=== PATIENT | male | born 1975 | race Caucasian/White ===

== ENCOUNTER 2022-04-28 15:24 | Emergency (ER) | payer MEDICAID, OTHER ==
[~2022-04-28] VITALS: Ht 180.3 cm; Wt 80.0 kg
[2022-04-28] MEDS ORDERED: TETRACAINE 0.5% OPHTH DROPS 4ML LEFTEYE ONE (16:30)
[2022-04-28] MEDS ORDERED: FLUORESCEIN SODIUM 1MG/STRIP LEFTEYE ONE (16:30)
[2022-04-28] MEDS ORDERED: ACETAMINOPHEN 325MG TABLET PO ONE (16:30)
[2022-04-28] MEDS ORDERED: ONDANSETRON HCL 4MG/2ML INJ IV STA ×2 (17:36→23:20)
[2022-04-28] MEDS ORDERED: MORPHINE SULFATE 4 MG/ML CPJ (NOT FOR IM USE) IV STA ×2 (17:36→23:20)
[2022-04-28] MEDS ORDERED: TETANUS, DIPHTHERIA, PERTUSSIS VAC/PF 0.5ML (>10YR OLD) IM ONE (17:45)
[2022-04-28] MEDS ORDERED: CEFAZOLIN 1000MG PREMIX 50 ML IV ONE ×2 (17:45→22:00)
[2022-04-28] MEDS ORDERED: SODIUM CHLORIDE 0.9% 1,000 ML IV ONE (19:15)
[2022-04-29 10:11] VITALS: BP 138/86
== END 2022-04-29 11:11 | disposition short-term general hospital (02) ==
LOC: ER 15:24
DX: S02.842A Fracture of lateral orbital wall, left side, initial encounter for closed fracture (principal); S02.32XA Fracture of orbital floor, left side, initial encounter for closed fracture; S05.8X2A Other injuries of left eye and orbit, initial encounter; H57.12 Ocular pain, left eye; H01.8 Other specified inflammations of eyelid; I10 Essential (primary) hypertension; Y08.89XA Assault by other specified means, initial encounter; Y93.89 Activity, other specified; Y92.9 Unspecified place or not applicable; Z20.822 Contact with and (suspected) exposure to COVID-19
CPT/HCPCS: 70480; 87426; 96361; 96365; 96366; 96375; 96376; 99285; C9803; J0690; J2270; J2405; J7030; Z7610